=== PATIENT | female | born 1965 | race Caucasian/White ===

== ENCOUNTER 2024-01-18 11:04 | Emergency (ER) | payer MEDICARE ==
--- NOTE | 2024-01-18 11:12 | ERPHSYRPT ---
- History of Present Illness Time Seen by Provider: 01/18/24 11:12 Source: patient, family Exam Limitations: no limitations Physician History: This is a 58-year-old white female patient who arrives by private vehicle with complaints of left rib pain, right knee pain and lower back pain. The patient has had bilateral hip replacement surgery. One side in June 2023 and the second 1 in July 2023. Patient has been undergoing physical therapy. 1 week ago, the patient was walking up steps and missed a step. She was carrying drinks in 1 hand and food and the other. She fell hitting the left side of her chest/ribs and had pain to her lower back and had an abrasion to the anterior knee on the right side. Patient has not been taking any ypsl-wdm-avafure medications and did not take any today. However, last night she bent down to lift a heavy bag of cat litter when she felt a pulling in her lower back and when she woke up this morning she was having pain. A week ago, patient never had any x-rays performed of the areas where she is complaining of pain. Patient does not want any pain medication. Patient went to physical therapy today and they recommended to come to the emergency department to obtain x-rays to make sure she can continue with her physical therapy. Occurred: last week Injuries/Pain Location: chest (Left ribs), back (Lower back), lower extremity (Right knee) Loss of Consciousness: no loss of consciousness Quality: aching Severity of Pain-Max: moderate Severity of Pain-Current: mild (Moderate) Modifying Factors: Improves With: movement (Including bending twisting) Associated Symptoms (Fall): back pain, chest pain (Left ribs), extremity injury (Right anterior knee) Allergies/Adverse Reactions: No Known Drug Allergies Allergy (Unverified 01/18/24 11:14) Travel Risk - International Travel Have you traveled outside of the country in past 3 weeks: No - Emerging Infectious Disease Are you exhibiting symptoms associated with any current EIDs: No - Review of Systems Constitutional: No Symptoms Eyes: No Symptoms Ears, Nose, & Throat: No Symptoms Respiratory: No Symptoms, Other (Left rib pain) Cardiac: No Symptoms Abdominal/Gastrointestinal: No Symptoms Genitourinary Symptoms: No Symptoms Musculoskeletal: Back Pain (Lower back), Fall (1 week ago), Injury, Joint Pain (Right knee) Skin: Other (This skin abrasion with eschar right anterior knee) Neurological: No Symptoms Psychological: No Symptoms Endocrine: No Symptoms Hematologic/Lymphatic: No Symptoms Immunological/Allergic: No Symptoms All Other Systems: Reviewed and Negative - Past Medical History Neurological History: Migraines Cardiac History: No Pertinent History Respiratory History: No Pertinent History Endocrine Medical History: Hypothyroidism Musculoskeletal History: Degenerative Disk Disease, Fibromyalgia, Osteoarthritis Other Medical History: PSORIASIS. SX HX: BILATERAL HIP NOTED. LUMBAR SURGERY IN 1998 FOR FUSION WITH FIXATION AND BONE GRAFT FROM HIP - Nursing Vital Signs Nursing Vital Signs: Initial Vital Signs Temperature 97.0 F 01/18/24 11:25 Pulse Rate 66 01/18/24 11:25 Respiratory Rate 18 01/18/24 11:25 Blood Pressure 115/82 01/18/24 11:25 O2 Sat by Pulse Oximetry 97 01/18/24 11:25 Pain Scale Pain Intensity 6 - [place] Coma Score Best Eye Response (Josh): (4) open spontaneously Best Verbal Response (Josh): (5) oriented Best Motor Response (Josh): (6) obeys commands Josh Total: 15 - Physical Exam General Appearance: no apparent distress, alert, anxiety Head Injury: no evidence of injury Eye Exam: PERRL/EOMI, eyes nml inspection ENT Exam: airway nml, nml ext.inspection, No evidence of ENT injury, No dental injury Neck Exam: supple, trachea midline, full range of motion, normal alignment, normal inspection Respiratory/Chest Exam: normal breath sounds, rib tenderness (Left lower ribs), No chest tenderness, No respiratory distress, No ecchymosis, No crepitus Cardiovascular Exam: normal heart sounds, regular rate/rhythm Gastrointestinal Exam: soft, normal bowel sounds, No tenderness, No guarding Rectal Exam: not done Back Exam: normal inspection, normal range of motion, muscle spasm, No CVA tenderness, No vertebral tenderness Extremity Exam: normal inspection, normal range of motion, pelvis stable Neurologic Exam: alert, oriented x 3, cooperative, electronic warfare technical II-XII nml as tested, nml cerebellar function, nml station & gait, sensation nml Skin Exam: normal color, warm, dry SpO2 Interpretation: normal O2 Delivery: Room Air - Course Nursing assessment & vital signs reviewed: Yes Ordered Tests: Active Orders 24 hr Category Date Time Status CHEST 1 VIEW (PORTABLE) Stat Exams 01/18/24 11:47 Completed HIPS KIMBERLEE(2V) INCL PEL IF DONE Stat Exams 01/18/24 11:47 Completed KNEE (3 VIEWS) Stat Exams 01/18/24 11:47 Completed LUMBAR LIMITED (2 OR 3 VIEWS) Stat Exams 01/18/24 11:47 Completed RIBS UNILATERAL Stat Exams 01/18/24 11:47 Completed - Progress Progress: unchanged Progress Note: 01/18/24 12:32 Medical decision making of the assignment of moderate complexity to this patient's medical issue today is based on review of the patient's past medical history, review the patient's medication list, reviewed patient drug allergy list, history present illness and physical findings on examination. The workup in this patient includes x-ray of the patient's chest and left ribs, x-rays of the patient's bilateral hips/pelvis, x-ray of the lumbar spine, and x-ray of the right knee. Differential diagnosis includes but is not limited to contusion, acute fracture, acute dislocation 01/18/24 12:44 I interpreted the preliminary reports of the following plain x-ray films: Chest x-ray shows no acute cardiopulmonary process. However there is a nondisplaced left seventh rib fracture. There is no evidence of pneumothorax. Left rib x-ray films shows a nondisplaced left seventh rib fracture without evidence of pneumothorax. Bilateral hip x-rays show metal hardware to be intact without evidence of any acute fracture or dislocation. Lumbar spine x-rays show no acute fracture or subluxation. Right knee x-ray shows no acute fracture or dislocation. The final reports of the above x-rays were interpreted by the radiologist and I reviewed the impression. The radiologist's impression of the above films confirm my findings as stated above. Counseled pt/family regarding: diagnosis, need for follow-up, rad results Medical Desision Making - Diagnostic Testing Diagnostic test were ordered, analyzed, and reviewed by me: Yes Radiological Interpretation: Interpreted by me, Reviewed by me, Teleradiologist Report - Risk of complications Low Risk: Low risk of morbidity from additional dx testing or treatment - Departure Departure Disposition: Home Clinical Impression: Fall with significant injury, Left rib fracture Condition: Stable Critical Care Time: No Referrals: DOCTOR,NO FAMILY [NON-STAFF PHY W/O PRIVILEGES] - Follow up/PCP as directed Additional Instructions: Ice pack to tender areas 3 times a day for the next 72 hours. Use Tylenol and ibuprofen for pain control if there are no contraindications. Keep your abrasions site clean daily with soap and water and apply antibiotic ointment of choice twice a day. Follow-up with your primary care provider today, 01/18/2024, by phone to make arrangement for follow-up appointment for further evaluation and management and to be seen in the next 5 to 7 days. Discussed the findings on today's x-rays with your physical therapist to determine what level of therapy and timing of therapy can be restarted
[2024-01-18 11:26] VITALS: TEMP 97
--- NOTE | 2024-01-18 12:37 | XRAY ---
Indication: Pain following fall one week ago. Comparison: None Portable chest demonstrate normal heart and lungs with mild right hemidiaphragm elevation and tiny mediastinal/hilar/pulmonary calcified granulomas. Bony thorax demonstrates osteopenia, minimal multilevel degenerative spondylosis, and nondisplaced lateral left 7 acute rib fracture.
--- NOTE | 2024-01-18 12:37 | XRAY ---
Indication: Pain following fall one week ago. Comparison: None 2 view left ribs demonstrates nondisplaced lateral 7 rib fracture without pneumothorax/hemothorax. Elsewhere osteopenia, minimal multilevel thoracic degenerative changes, small mediastinal/hilar/pulmonary calcified granulomas, lumbosacral fusion hardware, and incompletely visualized left hip arthroplasty.
--- NOTE | 2024-01-18 12:38 | XRAY ---
Indication: Pain following fall one week ago. Comparison: None 3 view lumbar spine demonstrates 5 lumbar segments in normal alignment with osteopenia, mild multilevel degenerative changes, L5-S1 intervertebral cages, incompletely visualized bilateral total hip arthroplasty, and minimal aortic calcifications. No other bony, articular, or soft tissue abnormalities.
--- NOTE | 2024-01-18 12:38 | XRAY ---
Indication: Pain following fall one week ago. Comparison: None AP pelvis and AP left/right hips demonstrates osteopenia, bilateral total hip arthroplasty with intact bipolar prosthesis, and L5-S1 intervertebral cages. No other bony, articular, or soft tissue abnormalities.
--- NOTE | 2024-01-18 12:41 | XRAY ---
Indication: Pain following fall one week ago. Comparison: None 3 view right knee osteopenia, mild medial joint space narrowing/spurring, and minimal medial/lateral joint degenerative chondrocalcinosis. No other bony, articular, or soft tissue abnormalities.
[2024-01-18 12:54] VITALS: BP 105/89; PULSE 60; RESP 16; O2SAT 98
== END 2024-01-18 13:00 | disposition home or self-care (01) ==
LOC: ED 11:04
DX: S22.32XA Fracture of one rib, left side, initial encounter for closed fracture (principal); R07.81 Pleurodynia; M25.561 Pain in right knee; M54.50 Low back pain, unspecified; W19.XXXA Unspecified fall, initial encounter; Z96.643 Presence of artificial hip joint, bilateral
CPT/HCPCS: 71045; 71100; 72100; 73521; 73562; 99283

== ENCOUNTER 2025-03-16 20:43 | Emergency (ER) | payer MEDICARE ==
[2025-03-16 20:56] VITALS: TEMP 96.3
--- NOTE | 2025-03-16 21:05 | ERPHSYRPT ---
- History of Present Illness Time Seen by Provider: 03/16/25 20:55 Source: patient Physician History: Got roast beef food bolus stuck while eating about an hour ago. Has not been able to swallow liquidsNo shortness of breath or chest pain.Patient had anesthesia earlier today.Denies cough. Allergies/Adverse Reactions: No Known Drug Allergies Allergy (Verified 03/16/25 20:44) Home Medications: Bupropion HCl Xl 150 mg [Wellbutrin XL 150 MG] 300 mg PO DAILY 03/16/25 [History] Escitalopram Oxalate [Lexapro] 20 mg PO DAILY 03/16/25 [History] Gabapentin [Neurontin ] 300 mg PO BID 03/16/25 [History] Galcanezumab-Gnlm [Emgality] 120 mg SQ Q30D 03/16/25 [History] Levothyroxine Sodium 112 Mcg [Synthroid 112 Mcg] 112 mcg PO DAILY 03/16/25 [History] Linaclotide [Linzess] 290 mcg PO DAILY 03/16/25 [History] Magnesium Oxide 400 mg [Mag-Ox 400] 1 tab PO HS 03/16/25 [History] Meloxicam [Mobic] 15 mg PO DAILY 03/16/25 [History] Methotrexate Sodium 2.5 mg [Trexall 2.5 mg] 2.5 mg PO WEEKLY 03/16/25 [History] Ondansetron ODT 4 MG [Zofran Odt 4 mg] 4 mg PO [id number] PRN 03/16/25 [History] Oxycodone HCl 5 mg PO Q4HPRN PRN 03/16/25 [History] Progesterone, Micronized [Progesterone] 100 mg PO DAILY 03/16/25 [History] Trazodone HCl 50 mg [Desyrel 50 mg] 100 mg PO HS 03/16/25 [History] Vortioxetine Hydrobromide [Trintellix] 20 mg PO DAILY 03/16/25 [History] Hx Tetanus, Diphtheria Vaccination/Date Given: Yes (5 years ago) Hx Influenza Vaccination/Date Given: No Hx Pneumococcal Vaccination/Date Given: Yes Travel Risk - Emerging Infectious Disease Are you exhibiting symptoms associated with any current EIDs: No - Review of Systems Constitutional: No Fever, No Chills Eyes: No Symptoms Ears, Nose, & Throat: No Symptoms Respiratory: No Cough, No Dyspnea Cardiac: No Chest Pain, No Edema, No Syncope Abdominal/Gastrointestinal: No Abdominal Pain, No Nausea, No Vomiting, No Diarrhea Genitourinary Symptoms: No Dysuria Musculoskeletal: No Back Pain, No Neck Pain Skin: No Rash Neurological: No Dizziness, No Focal Weakness, No Sensory Changes Psychological: No Symptoms Endocrine: No Symptoms All Other Systems: Reviewed and Negative - Past Medical History Neurological History: Migraines Cardiac History: No Pertinent History Respiratory History: No Pertinent History Endocrine Medical History: Hypothyroidism Musculoskeletal History: Other Other Medical History: PMH: HYPOTHYROIDISM, MIGRAINES. PSH: R CARPAL TUNNEL, BILATERAL HIP REPLACEMENTS, UPCOMING L KNEE REPLACEMENT 03/16/25 - Past Surgical History Past Surgical History: Yes Musculoskeletal: Orthopedic Surgery Other Surgical History: hips,back - Social History Smoking Status: Former smoker Exposure to second hand smoke: No Drug Use: none - Social Determinants of Health Will the patient participate in the screening: Yes Do you worry about a steady place to live?: No In the past 12 months,have you had to go without utilities?: No Transportation Issues: No Has anyone in your support network made you feel unsafe?: No Have you or anyone in your house had to go w/o enough food: No - Physical Exam General Appearance: no apparent distress Ears, Nose, Throat Exam: normal ENT inspection Neck Exam: normal inspection Respiratory Exam: normal breath sounds Cardiovascular Exam: regular rate/rhythm, normal heart sounds Gastrointestinal/Abdomen Exam: soft SpO2 Interpretation: normal - Progress Progress: improved Progress Note: 03/16/25 21:06 My exam the patient had a coughing episode and reported that it felt like it had passed. She states her symptoms are resolved. We challenged her with a water she was able to drink over a cup of water without any symptoms. She is asymptomatic at this time. She will return for any recurrent symptoms. - Departure Departure Disposition: Home Clinical Impression: Food bolus obstruction of intestine Condition: Good Critical Care Time: No Referrals: HAWA HOOVER MD [Primary Care Provider, FAMILY [facility]ACTICE] - Follow up/PCP as directed Additional Instructions: You develop any recurrent symptoms you should return for recheck. Drink plenty of fluids. May want to trial [id number] proton pump Hamiter like Prevacid if symptoms continue.
[2025-03-16 21:16] VITALS: O2SAT 98
[2025-03-16 21:18] VITALS: BP 104/69; PULSE 72; RESP 16
== END 2025-03-16 21:20 | disposition home or self-care (01) ==
LOC: ED 20:43
DX: T18.3XXA Foreign body in small intestine, initial encounter (principal); W44.F3XA Food entering into or through a natural orifice, initial encounter